=== PATIENT | female | born 1980 ===

== ENCOUNTER 2022-07-22 15:28 | Emergency (ER) | payer OTHER, SELFPAY ==
--- NOTE | 2022-07-22 15:35 | DI.US.S_ITS ---
PROCEDURE: US PELVIC COMPLETE INDICATIONS: RIGHT PELVIC PAIN AFTER INTERCOURSE TECHNIQUE: Real-time scanning was performed of the pelvic organs, with image documentation. Additional endovaginal scanning was necessary due to incomplete visualization of the adnexal and endometrial structures by transabdominal scanning. COMPARISON: None. FINDINGS: Uterus: Uterus is anteverted and normal in size at 9.6 x 4.1 x 5.2 cm. The myometrium is homogeneous. The endometrium measures 8 mm combined thickness. No uterine mass Ovaries: The right ovary measures 3.5 x 2.2 x 2.5 cm, with a calculated ovarian volume of 10.1 cc. The left ovary measures 2.4 x 1.7 x 1.5 cm, with a calculated ovarian volume of 3.2 cc. The ovaries have a normal sonographic appearance. Less than 12 follicles can be seen in each ovary. No adnexal masses are seen. 23 mm simple cyst within the right ovary. Other: No pathologic free abdominal or pelvic fluid. IMPRESSION: No acute process. We strive to produce accurate, complete, and clear reports of imaging services. To assist us in improving patient care, this report was composed using standard report templates and voice recognition software. Therefore, it may contain abnormal punctuation, insertions and/or omissions. Occasional wrong-word or sound-alike substitutions may occur. Though we review the report and make efforts to correct it, we do recommend that the report be read carefully in proper context to recognize any text inaccuracies. Dictated by: Shayna Bishop M.D. on 07/22/2022 at 15:45 Approved by: Shayna Bishop M.D. on 07/22/2022 at 15:46
[2022-07-22 15:44] VITALS: BP 133/77; PULSE 74; RESP 16; TEMP 36.5; O2SAT 98; BMI 23.8
--- NOTE | 2022-07-22 16:37 | ED_ITS ---
HPI - Abdominal Pain General Chief Complaint: Abdominal Pain Stated Complaint: sent by [facility] for US Time Seen by Provider: 07/22/22 15:34 Source: patient Mode of arrival: Family Vehicle History of Present Illness HPI narrative: 42-year-old female nonsmoker with noncontributory medical history presents at the request of an outside facility for evaluation of a sudden onset right lower quadrant pain. The patient had been in her normal state of health until this morning when she was having intercourse and developed sudden onset right lower quadrant pain. She denies other symptoms such as dizziness, weakness or lightheadedness. She is had no fever or chills and denies nausea, vomiting or diarrhea. She denies dysuria, frequency or urgency. She denies any vaginal bleeding or discharge. She had pain with motion and it seems to improve with rest. She denies other obvious provocation or palliation and denies any radiation of her discomfort. She presented initially to the emergency department at [facility] in Sunday and had full physical exam including pelvic with unremarkable findings. Urine demonstrates no signs of infection, blood or . There was also testing for gonorrhea and chlamydia. The patient was not officially transferred, no [facility] paperwork sent, patient was encouraged to go off [place] to any facility with US. Related Data Allergies Allergy/AdvReac Type Severity Reaction Status Date / Time No Known Drug Allergies Allergy Verified 07/22/22 15:44 Review of Systems Review of Systems Narrative: GENERAL: Denies chills, fatigue, malaise, fever, sweats. HEENT: Denies sinus pain, ear pain, sore throat, difficulty swallowing, dizziness. RESPIRATORY: Denies dyspnea, cough, wheezing, hemoptysis, sputum. CARDIOVASCULAR: Denies chest pain, palpitations, orthopnea, edema, GASTROINTESTINAL: See HPI : See HPI MUSCULOSKELETAL: denies weakness, joint pain, or bony pain SKIN: Denies rash, skin lesions, or other NEUROLOGIC: Denies weakness, headache, numbness, change in speech, confusion, seizures, incoordination. PSYCHIATRIC: No concerning psychosocial issues. 12 point review of systems is negative except for those stated above Patient History Social History Smoking Status: Never smoker Smoking Status: Never smoker alcohol intake frequency: 0-2 drinks per day Substance Use Type: does not use Exam Initial Vital Signs Initial Vital Signs: Vital Signs Temperature 97.7 F 07/22/22 15:44 Pulse Rate 74 07/22/22 15:44 Respiratory Rate 16 07/22/22 15:44 Blood Pressure 133/77 07/22/22 15:44 Pulse Oximetry 98 07/22/22 15:44 Oxygen Delivery Method Room Air 07/22/22 15:44 Course Orders Ordered: ED Orders 07/22/22 15:35 US pelvic complete Stat Vital Signs Vital signs: Vital Signs - 8 hr 07/22/22 15:44 Temperature 97.7 F Pulse Rate 74 Respiratory Rate 16 Blood Pressure 133/77 Pulse Oximetry 98 Oxygen Delivery Method Room Air MDM - Abdominal Pain MDM Narrative Medical decision making narrative: [42] year old patient presents with right lower quadrant pain after intercourse Multiple etiologies for patient's symptoms considered including, but not limited to: [Ovarian torsion versus cyst versus tubo-ovarian abscess versus other] Prior Charts reviewed from outside facility Primary Historian: patient Labs reviewed and interpreted by myself: From outside facility Imaging reviewed: Ultrasound notes ovarian cyst, no torsion, abscess or other acute finding Consultations: Discussed directly with sending provider Findings and discharge diagnosis discussed with patient/family followed by verbalization of understanding Return precautions discussed with patient/family whom verbalize understanding of diagnosis and plan Discharge Plan Departure Patient Disposition: Home Clinical Impression: Ovarian cyst Instructions: DI for Ovarian Cyst Activity Restrictions/Additional Instructions: *You have been diagnosed with [ right ovarian cyst without evidence of torsion or abscess.] *What to do: *Please continue to take your regular medications as directed. Staq-snf-[id number] anti-inflammatories such as ibuprofen or Naprosyn are appropriate to help with this type of pain *Please follow up with your primary care provider in 2-3 days, call for an appointment. Let them know you were seen in the Emergency Department and that we ask that you be seen in follow up. We will electronically transmit a record of today's note if your PCP is in our system *If you do not have a primary care provider please contact the [facility] Resource line at [phone]. They will ask some questions about your medical history and help get you set up with a doctor in the community. *Return to Emergency Department if you should have any new, worsening or co ncerning symptoms, such as [fever greater than 101 F, shaking chills, worsening pain, persistent vomiting or other bothersome symptoms] Stand Alone Forms: Patient Portal/API
== END 2022-07-22 16:45 | disposition home or self-care (01) ==
PROVIDERS: Emergency Provider Emergency Medicine
DX: N83.201 Unspecified ovarian cyst, right side (principal)
CPT/HCPCS: 76830; 76856; 93976; 99283